=== PATIENT | female | born 1965 | race Caucasian/White ===

== ENCOUNTER → 2021-07-13 | Outpatient (CLI) | payer OTHER ==
[~2021-07-13] MED LIST: ATORVASTATIN CA20 MG PO; FUROSEMIDE20 MG PO; IMDUR ER TAB 6060 MG PO; LISINOPRIL-HCT1 EAC2 PO; LISINOPRIL10 MG PO; LOPRESSOR 25 MG25 MG PO; PLAVIX75 MG PO
== END ==
LOC: HEART 5 07-02 15:30
DX: R00.2 Palpitations (principal)

== ENCOUNTER → 2021-10-01 | Outpatient (CLI) | payer OTHER | LOC: HEART 5 09-17 09:00 | DX: I25.10 Atherosclerotic heart disease of native coronary artery without angina pectoris (principal); R06.02 Shortness of breath; I08.1 Rheumatic disorders of both mitral and tricuspid valves; I27.20 Pulmonary hypertension, unspecified | CPT/HCPCS: 93306 ==